=== PATIENT | female | born 1955 | race Caucasian/White ===

== ENCOUNTER → 2017-04-10 | Outpatient (CLI) | payer BC ==
--- NOTE | 2017-04-10 17:00 | Diagnostic Imaging Report ---
PROCEDURE: MRI right joint upper extremity without contrast. TECHNIQUE: Multiplanar, multisequence non contrast-enhanced MRI of the right upper extremity was accomplished. INDICATION: Right shoulder pain. FINDINGS: There is no os acromiale or Hill-Sachs deformity. The acromioclavicular joint demonstrates osteoarthritis with prominent inferior osteophytes particularly at the clavicular side. This is abutting the underlying myotendinous junction of the supraspinatus. The rotator cuff demonstrates tendinosis and partial tears within the infraspinatus and a full-thickness tear along the distal aspect of the supraspinatus at the insertion site. No significant retraction is seen. There is mild fluid distention of the subacromial subdeltoid bursa. The long head of biceps tendon is not well seen. It appears to be within its bicipital groove but has increased signal which could relate to a tear. There is increased signal also seen within the subscapularis tendon suggestive of a high-grade partial tear. The labrum is not well evaluated on this exam without articular contrast. There is mild atrophy of the subscapularis and minimal atrophy of the supraspinatus muscles. The marrow signal is generally normal in the humerus and the glenoid. Subchondral edema along the acromioclavicular joint is seen. IMPRESSION: 1. Rotator cuff tears with high grade partial tear involving the subscapularis tendon and full thickness tear along the distal aspect of the supraspinatus involving particularly the anterior fibers. There is a partial tear in the infraspinatus tendon. 2. Poor definition of the long head of biceps tendon may relate to increased signal from injury. Dislocation of the tendon from the bicipital groove is not excluded. 3. Mild atrophy of the subscapularis and minimal atrophy of the supraspinatus muscles. Dictated by: Dictated on workstation # [id number]
== END ==
LOC: RAD 15:20
PROVIDERS: ATTEND Orthopaedic Surgery
DX: M75.121 Complete rotator cuff tear or rupture of right shoulder, not specified as traumatic (principal); M62.521 Muscle wasting and atrophy, not elsewhere classified, right upper arm
CPT/HCPCS: 73221